=== PATIENT | male | born 1925 | race Caucasian/White ===

== ENCOUNTER → 2017-02-27 | Outpatient (CLI) | payer MEDICARE, OTHER | LOC: MW.MRI 15:35 | PROVIDERS: ATTEND Ophthalmology | DX: H49.01 Third [oculomotor] nerve palsy, right eye (principal); Z53.9 Procedure and treatment not carried out, unspecified reason ==

== ENCOUNTER → 2017-03-05 | Outpatient (CLI) | payer MEDICARE, OTHER ==
[~2017-03-05] MED LIST: Gadobenate Dimeglumine 529 MG/ML 20 ML SDV IV ONE
--- NOTE | 2017-03-05 16:02 | CR ---
EXAMINATION: Skull HISTORY: MRI clearance COMPARISON: 02/28/2017 TECHNIQUE: Fox' view FINDINGS/IMPRESSION: No radiopaque foreign bodies project over the orbits. The nasal septum is midli ne. No bony destruction or fracture.
--- NOTE | 2017-03-06 08:59 | MR ---
EXAMINATION: MRI of the brain and orbits with and without contrast. Technique: Multiplanar and multisequence imaging of the brain and orbits without and following 15 c c of Multihance. HISTORY: Right oculomotor nerve palsy. FINDINGS: Cerebral hemispheres and the deep nuclei are without hemorrhage, mass, edema, gliosis, or enhancemen t. There is moderate generalized atrophy. Periventricular and subcortical white matter FLAIR signal intensities are noted. No extraaxial collections or hemorrhage. No abnormal diffusion restriction. The ventricular system is of normal size and configuration without hydrocephalus. The brainstem an d cerebellum are without hemorrhage, mass, edema, gliosis, enhancement or atrophy. The carotid basilar artery flow voids are intact. The otomastoid airspaces are clear. No internal auditory canal or cerebellopontine angle masses or enhancement. No cranial neuritis. There is part ial opacification of the sphenoid and right maxillary sinuses. Globes, optic nerves, orbital apices, optic chiasm, optic tracts, lateral geniculate and visual darrel ices are unremarkable. There is a right scleral buckle and lens extraction changes. No optic chiasm mass. Pituitary and sella turcica are unremarkable. No meningeal enhancement. The craniocervical junctio n is unremarkable without Chiari malformation. No siderosis or evidence of vascular malformation. The calvarium is intact. IMPRESSION: 1. No acute intracranial findings. 2. Moderate generalized atrophy and small vessel ischemic changes. 3. Paranasal sinus disease.
== END ==
LOC: MW.MRI 10:49
PROVIDERS: ATTEND Ophthalmology
DX: H49.01 Third [oculomotor] nerve palsy, right eye (principal); J34.9 Unspecified disorder of nose and nasal sinuses
CPT/HCPCS: 70250; 70543; 70553; A9577

== ENCOUNTER 2017-03-26 14:37 | Emergency (ER) | payer MEDICARE, OTHER | END 2017-03-26 14:48 | disposition left against medical advice (07) | LOC: MW.ED 14:37 | DX: Z53.21 Procedure and treatment not carried out due to patient leaving prior to being seen by health care provider (principal) ==

== ENCOUNTER → 2017-03-26 | Outpatient (CLI) | payer MEDICARE, OTHER | LOC: MW.CHENT 17:25 | PROVIDERS: ATTEND Otolaryngology | DX: H60.90 Unspecified otitis externa, unspecified ear (principal); H92.21 Otorrhagia, right ear | CPT/HCPCS: 87070; 87077; 87102; 87186; 92504; 99203 ==